=== PATIENT | male | born 1990 | race Caucasian/White ===

== ENCOUNTER 2018-07-21 15:52 | Emergency (ER) | payer OTHER ==
[~2018-07-21] VITALS: Ht 175.3 cm; Wt 68.0 kg
[2018-07-21] MEDS ORDERED: SODIUM CHLORIDE 0.9% 1,000ML IVBOLUS ONE (16:30)
[2018-07-21] MEDS ORDERED: LIDOCAINE-MPF 1%, 5ML INFIL ONE (16:30)
[2018-07-21] MEDS ORDERED: SODIUM CHLORIDE FLUSH 10ML SYR IVF ONE (16:30)
[2018-07-21 16:56] LABS: ALBUMIN 3.2 g/dL (3.4-5.0); ANION GAP 6 mmol/L (5-15); CALCIUM 8.8 mg/dL (8.5-10.1); CHLORIDE 104 mmol/L (98-107)
[2018-07-21 16:58] LABS: BASOPHILS # (AUTO) 0.04 x10^3/uL (0-0.1); BASOPHILS % (AUTO) 0 % (0-1); EOSINOPHILS # (AUTO) 0.04 x10^3/uL (0-0.4); EOSINOPHILS % (AUTO) 0 % (1-7); LYMPHOCYTES # (AUTO) 1.74 x10^3/uL (1-3.4); LYMPHOCYTES % (AUTO) 18 % (22-44); MD NO; MEAN CORPUSCULAR HEMOGLOBIN 30.2 pg (27.5-34.5); MEAN CORPUSCULAR HGB CONC 33.7 g/dL (33.2-36.2); MEAN CORPUSCULAR VOLUME 89.6 fL (81-97); MEAN PLATELET VOLUME 8.3 fL (7.4-10.4); MONOCYTES % (AUTO) 8 % (2-9); NEUTROPHILS % (AUTO) 73 % (42-75); PLATELET COUNT 266 x10^3/uL (130-400); RED BLOOD COUNT 4.74 x10^6/uL (4.38-5.82); RED CELL DISTRIBUTION WIDTH 12.1 % (9.4-14.8)
[2018-07-21 17:10] LABS: MONOSCREEN Negative (Negative)
[2018-07-21] MEDS ORDERED: LIDOCAINE 1%-EPI 1:100K, 30ML ONE (17:14)
[2018-07-21 18:39] VITALS: BP 134/59
== END 2018-07-21 18:41 | disposition home or self-care (01) ==
LOC: ED 18:26
DX: B37.81 Candidal esophagitis (principal); E86.0 Dehydration; R55 Syncope and collapse
CPT/HCPCS: 36415; 71045; 80048; 82040; 85025; 86308; 87806; 93005; 96360; 99285; J7030; G0475

== ENCOUNTER 2018-07-26 12:38 | Emergency (ER) | payer OTHER ==
[~2018-07-26] VITALS: Ht 175.3 cm; Wt 66.0 kg
[2018-07-26 12:45] VITALS: BP 93/56
== END 2018-07-26 13:57 | disposition home or self-care (01) ==
LOC: ED 13:30
DX: S01.112D Laceration without foreign body of left eyelid and periocular area, subsequent encounter (principal)
CPT/HCPCS: 99282

== ENCOUNTER 2018-10-04 05:50 | Emergency (ER) | payer OTHER ==
[~2018-10-04] VITALS: Ht 175.3 cm; Wt 70.2 kg
[2018-10-04 05:53] VITALS: BP 103/62
== END 2018-10-04 06:45 | disposition home or self-care (01) ==
LOC: ED 06:07
DX: B37.0 Candidal stomatitis (principal); F17.200 Nicotine dependence, unspecified, uncomplicated
CPT/HCPCS: 82962; 99283

== ENCOUNTER 2019-04-15 10:19 | Emergency (ER) | payer OTHER ==
[~2019-04-15] VITALS: Ht 175.3 cm; Wt 75.0 kg
[2019-04-15 10:35] VITALS: BP 120/84
--- NOTE | 2019-04-15 10:43 | NUR ---
LESION LEFT HIP THAT PT NOTICED YESTERDAY
== END 2019-04-15 11:20 | disposition home or self-care (01) ==
LOC: ED 11:10
DX: B02.33 Zoster keratitis (principal); M25.552 Pain in left hip
CPT/HCPCS: 99283

== ENCOUNTER → 2019-04-25 | Outpatient (CLI) | payer OTHER | END | disposition home or self-care (01) | LOC: RAD 08:38 | PROVIDERS: ATTEND Specialist | DX: R13.10 Dysphagia, unspecified (principal); R07.9 Chest pain, unspecified | CPT/HCPCS: 71046; 74220 ==

== ENCOUNTER 2020-08-25 12:40 | Emergency (ER) | payer OTHER ==
[~2020-08-25] VITALS: Ht 175.3 cm; Wt 79.0 kg
[2020-08-25 12:45] VITALS: BP 123/59
--- NOTE | 2020-08-25 13:22 | NUR ---
TO [facility]MAIN FROM [facility]OBBY
== END 2020-08-25 14:16 | disposition home or self-care (01) ==
LOC: ED 13:24
DX: B02.9 Zoster without complications (principal)
CPT/HCPCS: 99283